=== PATIENT | female | born 1990 | race Caucasian/White ===

== ENCOUNTER → 2024-02-25 10:35 | Outpatient (REF) | payer BC, SELFPAY | LOC: REG 10:35 | PROVIDERS: ATTENDING PHYSICIAN Obstetrics & Gynecology | DX: O09.523 Supervision of elderly multigravida, third trimester (principal) | CPT/HCPCS: 36415; 86850; 86900; 86901; J2790 ==

== ENCOUNTER → 2024-03-17 15:01 | Outpatient (REF) | payer BC, SELFPAY | LOC: PNTC 15:01 | PROVIDERS: ATTENDING PHYSICIAN Obstetrics & Gynecology | DX: O24.419 Gestational diabetes mellitus in pregnancy, unspecified control (principal) | CPT/HCPCS: 76815 ==

== ENCOUNTER → 2024-04-08 11:39 | Outpatient (REF) | payer BC, SELFPAY | LOC: PNTC 11:39 | PROVIDERS: ATTENDING PHYSICIAN Obstetrics & Gynecology | DX: O24.419 Gestational diabetes mellitus in pregnancy, unspecified control (principal) | CPT/HCPCS: 76815 ==

== ENCOUNTER → 2024-04-14 10:34 | Outpatient (REF) | payer BC, SELFPAY | LOC: PNTC 10:34 | PROVIDERS: ATTENDING PHYSICIAN Obstetrics & Gynecology | DX: O24.419 Gestational diabetes mellitus in pregnancy, unspecified control (principal) | CPT/HCPCS: 59025; 76815 ==

== ENCOUNTER 2024-04-21 07:51 | Inpatient (IN) | payer BC, SELFPAY ==
[2024-04-21 07:59] VITALS: BP 141/77; BMI 33.5
[2024-04-21] MEDS: LR 1000 IV ×3 (08:00→17:00)
[2024-04-21 08:29] LABS: Glucose - Point of Care 145 mg/dl (70-99)
[2024-04-21 08:29] LABS: Glucose - Point of Care 114 mg/dl (70-99)
[2024-04-21 09:07] LABS: % Basophils 0.2 % (0-2); % Eosinophils 1.6 % (0-6); % Immature Granulocytes 0.9 % (0-0.5); % Lymphocytes 16.5 % (20.5-51.1); % Monocytes 8.2 % (1.7-9.3); % Neutrophils 72.6 % (42.2-75.2); Absolute Eosinophils 0.1 10^3/uL (0-0.7); Absolute Immature Granulocytes 0.1 10^3/uL (0-0.05); Absolute Lymphocytes 1.3 10^3/uL (1.2-3.4); Absolute Monocytes 0.7 10^3/uL (0.1-0.6); Absolute Neutrophils 5.9 10^3/uL (1.4-6.5); Hematocrit 36.7 % (37.0-47.0); Hemoglobin 12.8 g/dL (12.0-16.0); Mean Corp Hgb Conc. 34.9 g/dL (33.0-37.0); Mean Corpuscular Hgb 29.8 pg (27.0-31.0); Mean Corpuscular Volume 85.5 fL (81.0-99.0); Mean Platelet Volume 10.4 fL (7.4-10.4); Nucleated Red Blood Cells % 0 %; Platelet Count 214 10^3/uL (130-400); Red Blood Cell Count 4.29 10^6/uL (4.20-5.40); Red Cell Dist. Width 13.2 % (11.5-14.5); White Blood Cell Count 8.1 10^3/uL (4.8-10.8)
[2024-04-21] MEDS: PENICILLIN 110 UNITS IV (09:31)
[2024-04-21] MEDS: PITOCIN 30 UNITS/NSS 500 ML IV (09:40)
[2024-04-21 12:37] LABS: Glucose - Point of Care 71 mg/dl (70-99)
[2024-04-21] MEDS: PENICILLIN 55 UNITS IV ×2 (13:39→17:40)
[2024-04-21 16:01] LABS: Glucose - Point of Care 76 mg/dl (70-99)
[2024-04-21] MEDS: SUBLIMAZE 100 MCG EPIDURAL (16:55)
[2024-04-21] MEDS: FENTANYL/BUPIVACAINE 100 EPIDURAL (16:56)
[2024-04-21 18:45] LABS: Cord ABG Comment CORD BLOOD
[2024-04-21 18:46] LABS: B.E. Cord ABG -2.7 mMOL/L; HCO3 Cord ABG 24.2 mmol/L; O2 Saturation % Cord ABG 50.5 %; PCO2 Cord ABG 48 mmHg; PO2 Cord ABG 27 mmHg; pH Cord ABG 7.31
[2024-04-21 18:49] LABS: HCO3 Cord ABG 26.1 mmol/L; O2 Saturation % Cord ABG 20.1 %; PCO2 Cord ABG 61 mmHg; PO2 Cord ABG 16 mmHg; pH Cord ABG 7.24
[2024-04-21 19:39] LABS: % Basophils 0.3 % (0-2); % Eosinophils 0.3 % (0-6); % Immature Granulocytes 0.5 % (0-0.5); % Lymphocytes 8.1 % (20.5-51.1); % Monocytes 6.7 % (1.7-9.3); % Neutrophils 84.1 % (42.2-75.2); Absolute Immature Granulocytes 0.1 10^3/uL (0-0.05); Absolute Lymphocytes 1.2 10^3/uL (1.2-3.4); Absolute Neutrophils 12.4 10^3/uL (1.4-6.5); Hematocrit 33.9 % (37.0-47.0); Hemoglobin 11.4 g/dL (12.0-16.0); Mean Corp Hgb Conc. 33.6 g/dL (33.0-37.0); Mean Corpuscular Hgb 30.6 pg (27.0-31.0); Mean Corpuscular Volume 90.9 fL (81.0-99.0); Mean Platelet Volume 10.1 fL (7.4-10.4); Nucleated Red Blood Cells % 0 %; Platelet Count 232 10^3/uL (130-400); Red Blood Cell Count 3.73 10^6/uL (4.20-5.40); Red Cell Dist. Width 13.2 % (11.5-14.5); White Blood Cell Count 14.8 10^3/uL (4.8-10.8)
[2024-04-21 19:50] LABS: INR 1.05; PT 13.5 Sec (11.4-14.6)
[2024-04-21 19:51] LABS: APTT 26.8 Sec (23.4-35.0); Fibrinogen 384 MG/DL (199-459)
[2024-04-21 19:53] LABS: ALT (SGPT) 19 U/L (0-35); AST (SGOT) 27 U/L (14-36); Alkaline Phosphatase 199 U/L (38-126); Blood Urea Nitrogen 15 mg/dl (7-17); Calcium 9.2 mg/dl (8.4-10.2); Carbon Dioxide 17 mmol/L (22-30); Chloride 105 mmol/L (98-107); Estimated Creatinine Clearance > 125 ml/min; Glucose 116 mg/dl (70-99); Potassium 4.3 mmol/L (3.5-5.1); Sodium 135 mmol/L (135-145); Total Bilirubin 0.3 mg/dl (0.2-1.3); Total Protein 5.4 g/dl (6.3-8.2); eGFR > 60.00
[2024-04-22] MEDS: TORADOL 15 MG IV (01:04)
[2024-04-22] MEDS: BENADRYL 25 MG PO (01:26)
[2024-04-22 02:39] LABS: Hematocrit 26.9 % (37.0-47.0); Hemoglobin 9.6 g/dL (12.0-16.0)
--- NOTE | 2024-04-22 08:05 | W.PN.ANS.POP ---
Anesthesia Post Operative
- Anesthesia Post Op Note
Vital Signs Stable-See Nursing Note: Yes
Airway Patent: Yes
Adequate Pain Control: Yes
Change in Mental Status: No
Current Postoperative Nausea & Vomiting: No
Anesthesia Complications: No
General Anesthetic Recall: No
Unplanned Admission: No
Post Op Hydration Adequate: Yes
- -
Pt awake and alert, resting comfortably with no anesthesia related c/o at time of post op visit.
[2024-04-22] MEDS: MOTRIN 600 MG PO ×3 (08:34→20:42)
[2024-04-22] MEDS: TYLENOL 650 MG PO ×3 (08:35→20:42)
[2024-04-22] MEDS: SENOKOT-S 1 TABLET PO (08:35)
[2024-04-22] MEDS: MYLICON 80 MG PO ×2 (08:36→20:48)
[2024-04-22] MEDS: PRENATAL PLUS 1 TABLET PO (08:36)
[2024-04-22 10:06] LABS: % Basophils 0.2 % (0-2); % Immature Granulocytes 0.7 % (0-0.5); % Lymphocytes 8.7 % (20.5-51.1); % Monocytes 7.4 % (1.7-9.3); Absolute Immature Granulocytes 0.1 10^3/uL (0-0.05); Absolute Lymphocytes 1.1 10^3/uL (1.2-3.4); Absolute Monocytes 0.9 10^3/uL (0.1-0.6); Absolute Neutrophils 10.2 10^3/uL (1.4-6.5); Hematocrit 25.4 % (37.0-47.0); Hemoglobin 8.9 g/dL (12.0-16.0); Mean Corpuscular Hgb 31.2 pg (27.0-31.0); Mean Corpuscular Volume 89.1 fL (81.0-99.0); Nucleated Red Blood Cells % 0 %; Red Blood Cell Count 2.85 10^6/uL (4.20-5.40); Red Cell Dist. Width 13.1 % (11.5-14.5); White Blood Cell Count 12.3 10^3/uL (4.8-10.8)
[2024-04-22 11:25] LABS: Syphilis/T. pallidum Ab Reflex Negative (Negative)
[2024-04-22] MEDS: FEOSOL 325 MG PO (20:42)
[2024-04-23] MEDS: MOTRIN 600 MG PO ×2 (02:51→12:29)
[2024-04-23] MEDS: TYLENOL 650 MG PO ×2 (02:51→12:29)
--- NOTE | 2024-04-23 03:02 | DOWNTIME ---
There was a [employer] Downtime on 04/23/2024 from 0100 to 04/23/2024 at 0300. Downtime documentation of patient's care, including medication administrations, has been reconciled in the electronic record per guidelines. Refer to the
patient's paper chart under the miscellaneous tab to see printed paper medication records and downtime forms.
[2024-04-23] MEDS: PRENATAL PLUS 1 TABLET PO (08:36)
[2024-04-23] MEDS: FEOSOL 325 MG PO (08:36)
--- NOTE | 2024-04-23 12:28 | W.DS.TRANS ---
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
-
Discharge Instructions:
Discharge Diagnosis/Procedures s/p primary ; hemorrhage;
anemia, asymptomatic
Instructions:
Stand-Alone Forms: LDRP Delivery
Changes to Home Medications: No
Discharge Medications:
DC Medications w/original date entered in [facility]
vitamin-ferrous fumarate 28 mg iron-folic acid 800 mcg tablet ( Tablet) 1 tab PO DAILY 04/21/24
acetaminophen 325 mg tablet 650 mg (2 x 325 mg) PO Q4HPRN PRN mild pain #0 tabs 04/23/24
ferrous sulfate 325 mg (65 mg iron) tablet (FeroSul) 325 mg PO BID #0 tabs 04/23/24
ibuprofen 600 mg tablet 600 mg PO Q6HPRN PRN cramps #60 tabs 04/23/24
oxycodone 5 mg tablet 5 mg PO Q4H PRN severe pain #7 tabs 04/23/24
sennosides 8.6 mg-docusate sodium 50 mg tablet 1 tab PO DAILYPRN PRN constipation #0 tabs 04/23/24
Home Medication Changes
Pending Results: No
Total time spent discharging patient (in min): 20
== END 2024-04-23 13:47 | disposition home or self-care (01) | DRG 787 ==
LOC: LDRP 07:51
PROVIDERS: ADMITTING PHYSICIAN Obstetrics & Gynecology; ATTENDING PHYSICIAN Obstetrics & Gynecology
PROC: 10D00Z1 Extraction of Products of Conception, Low, Open Approach (ICD-10-PCS; 2024-04-21)
PROC: 3E033VJ Introduction of Other Hormone into Peripheral Vein, Percutaneous Approach (ICD-10-PCS; 2024-04-21)
PROC: 3E033GC Introduction of Other Therapeutic Substance into Peripheral Vein, Percutaneous Approach (ICD-10-PCS; 2024-04-21)
DX: O76 Abnormality in fetal heart rate and rhythm complicating labor and delivery (principal); O72.1 Other immediate postpartum hemorrhage; O24.420 Gestational diabetes mellitus in childbirth, diet controlled; O69.81X0 Labor and delivery complicated by cord around neck, without compression, not applicable or unspecified; O90.81 Anemia of the puerperium; O99.824 Streptococcus B carrier state complicating childbirth; O34.13 Maternal care for benign tumor of corpus uteri, third trimester; D25.9 Leiomyoma of uterus, unspecified; Z3A.39 39 weeks gestation of pregnancy; Z37.0 Single live birth; Z87.891 Personal history of nicotine dependence
CPT/HCPCS: 88307; 80053; 82803; 82962; 85014; 85018; 85025; 85384; 85610; 85730; 86780; 86850; 86870; 86900; 86901; 86920